=== PATIENT | female | born 1995 | race Caucasian/White ===

== ENCOUNTER 2023-08-15 21:04 | Emergency (ER) | payer OTHER ==
[~2023-08-15] VITALS: Ht 157.5 cm; Wt 64.9 kg
[~2023-08-15 21:04] MED LIST: FAMO-90 PO
[2023-08-15 21:31] VITALS: BP 127/70; PULSE 76; RESP 19; TEMP 97.7; O2SAT 100
[2023-08-15] MEDS ORDERED: FLUORESCEIN OPTH STRIP 1 MG OP ONE (23:30)
[2023-08-15] MEDS ORDERED: TETRACAINE HCL/PF 0.5% OPTH 4 ML BTL OP ONE (23:30)
[2023-08-16] MEDS ORDERED: LEVO5DRO OP (00:15)
[2023-08-16] MEDS ORDERED: ACET-10509 PO (00:16)
[2023-08-16 00:25] VITALS: BP 127/70; PULSE 76; RESP 19; TEMP 97.7; O2SAT 100
== END 2023-08-16 00:25 | disposition home or self-care (01) ==
LOC: MED 21:04
DX: S05.01XA Injury of conjunctiva and corneal abrasion without foreign body, right eye, initial encounter (principal); H11.31 Conjunctival hemorrhage, right eye; Z79.899 Other long term (current) drug therapy; Z79.2 Long term (current) use of antibiotics; W50.1XXA Accidental kick by another person, initial encounter; Y93.89 Activity, other specified; Y92.89 Other specified places as the place of occurrence of the external cause; Y99.8 Other external cause status
CPT/HCPCS: 99283